=== PATIENT | female | born 2005 | race African-American/Black ===

== ENCOUNTER 2025-07-08 16:49 | Emergency (ER) | payer OTHER ==
[~2025-07-08] VITALS: Ht 162.6 cm; Wt 113.0 kg
[2025-07-08 17:45] LABS: PLATELET COUNT (AUTO) 340 K/uL (150-450); RED BLOOD CELL COUNT(AUTO) 3.75 MIL/uL (4.00-5.20); RED CELL DISTRIBUTION WIDTH 14.2 % (11.5-14.5); WHITE BLOOD COUNT (AUTO) 8.0 K/uL (4.5-11.0)
[2025-07-08 17:53] LABS: CALCIUM, TOTAL 8.8 mg/dL (8.8-10.5); CREATININE 0.83 mg/dL (0.60-1.30); GLOMERULAR FILTR. RATE CALC > 60 mL/min (>60); GLUCOSE,RANDOM 83 mg/dL (70-110); SODIUM SERUM 141 mmol/L (136-145); UREA NITROGEN, BLOOD 13 mg/dL (7-18)
[2025-07-08 17:59] LABS: ASPARTATE AMINOTRANSFERASE 34.0 U/L (15-37); TOTAL PROTEIN, SERUM 6.9 g/dL (6.4-8.2)
[2025-07-08 18:06] LABS: APPEARANCE,URINE HAZY (CLEAR); GLUCOSE, URINE (UA) NEGATIVE (NEGATIVE); LEUKOCYTE ESTERASE ,URINE MODERATE (NEGATIVE); NITRATE,URINE POSITIVE (NEGATIVE); OCCULT BLOOD,URINE LARGE (NEGATIVE); SPECIFIC GRAVITIY, URINE 1.020 (1.003-1.030)
[2025-07-08 18:17] LABS: SQUAMOUS EPITHELIAL CELL,UR Few /LPF (None Seen)
[2025-07-08 20:48] VITALS: BP 148/86; PULSE 64; RESP 18; O2SAT 100
== END 2025-07-08 21:22 | disposition short-term general hospital (02) ==
LOC: EMS 16:49
DX: O14.95 Unspecified pre-eclampsia, complicating the puerperium (principal)
CPT/HCPCS: 99285; 96374; 80048; 80076; 81001; 83735; 85025; 87077; 87086; 36415; 96376; J0360